=== PATIENT | female | born 1940 | race Caucasian/White ===

== ENCOUNTER 2019-01-04 09:10 | Day surgery (SDC) | payer MEDICARE ==
--- NOTE | 2018-12-10 07:27 | HP ---
PREOPERATIVE HISTORY AND PHYSICAL: DATE OF ADMISSION: 01/04/19 PROVIDER: Ramya Corral MD.* (DICTATED BY GABRIELLE MALLORY) CHIEF COMPLAINT: Right index finger pain. HISTORY OF PRESENT ILLNESS: Ella is a 78-year-old female who has been followed by Dr. Corral for right distal index finger pain. She has been diagnosed with a mucous cyst and significant deformity from her arthritis. She is interested in surgical intervention at this time. PAST MEDICAL HISTORY: Allergic rhinitis, obstructive sleep apnea, irritable bowel syndrome, and hyperlipidemia. PAST SURGICAL HISTORY: Left wrist cyst excision, left carpal tunnel release, tonsillectomy as a child. She reports no complications with anesthesia with those procedures. CURRENT MEDICATIONS: 1. Fluticasone propionate 50 mcg intranasal once daily. 2. Trazodone 50 mg one-half to 1 tab by mouth as needed for sleep. 3. Oxybutynin chloride 5 mg 2 times daily as needed. 4. Escitalopram oxalate 10 mg 1-1/2 tabs by mouth daily. 5. Ipratropium bromide 0.03% spray 2 sprays in each nostril 2 to 3 times a day as needed. 6. Atorvastatin calcium 10 mg one-half tab p.o. daily. 7. Levothyroxine 50 mcg half tab p.o. daily. 8. Methylphenidate 5 mg 4 to 5 tablets by mouth daily. 9. Tylenol 325 mg 2 tabs p.o. q.6 hours as needed for pain. 10. Vitamin D3 supplement 1000 units 2 tabs by mouth daily. 11. Susie Allergy [id number] as needed. ALLERGIES: No known drug allergies. FAMILY HISTORY: Noncontributory. SOCIAL HISTORY: The patient is a retired therapist. She drinks 1 to 2 alcoholic beverages daily. She quit smoking several years ago and exercises occasionally. REVIEW OF SYSTEMS: Negative for recent hospitalization, fevers, chills, night sweats, or weight loss. Positive for fatigue. HEENT: Negative for headaches, lightheadedness, or balance problems, blurred vision, double vision, sore throat , runny nose, frequent nosebleeds, or hearing changes. Cardiovascular: Negative for chest or arm pain with exertion, history of heart attack, heart murmur, heart palpitations, high blood pressure, embolism, or deep vein thrombosis. Respiratory: Negative for chronic cough, shortness of breath with exertion, asthma, or COPD. Gastrointestinal: Negative for heartburn, nausea, vomiting, diarrhea, constipation, or GERD. Genitourinary: Negative for nighttime urination, frequency of urination, urinary tract infections, or kidney problems. Musculoskeletal: Negative for chronic back or neck pain. Positive for previous fracture and arthritis. Neurologic: Negative for seizure , stroke, epilepsy. Positive for depression and anxiety. Endocrine: Negative for diabetes. Positive for hypothyroidism. Hematology: Positive for easy bleeding and bruising. Negative for history of anemia. PHYSICAL EXAMINATION GENERAL: She is a well-developed, well-nourished pleasant female, in no acute distress at rest. She is alert and oriented x3 with appropriate mood and affect. VITAL SIGNS: The patient is 4 feet 9 inches, weight 121 pounds. Blood pressure 100/60, pulse is 70, respirations 12. HEENT: Normocephalic, atraumatic. Her hearing and vision are grossly intact. NECK: Her trachea is midline. RESPIRATORY: Lungs are clear to auscultation bilaterally. No wheezes, rales, or rhonchi. CARDIOVASCULAR: Regular rate and rhythm. No murmurs, rubs, or gallops appreciated. ABDOMEN: Soft, nondistended, and nontender. Normal bowel sounds. EXTREMITIES: Exam of the right upper extremity: The patient's skin is intact without abrasions or open wounds. There is no significant edema or ecchymosis. She has significant deformities from arthritis, especially noted at the index finger DIP joint. The finger nail also has a deformity. She has good motion with flexion and extension of the finger with mild pain. She is tender over the area of the mucous cyst. Sensation to light touch is intact. She has a normal vascular exam. DIAGNOSTIC STUDIES/LAB DATA: X-rays of the hand show severe degenerative arthritis. IMPRESSION: Right index finger mucous cyst. PLAN: The patient is to undergo mucous cyst excision of the right index finger by Dr. Corral. The risks, benefits, and postoperative course were discussed with Dr. Corral at today's visit and she agreed to proceed. She will follow up in the office in 10 to 14 days postoperatively. All of her questions were answered to her full satisfaction. [place], [place] [id number]/[facility] #: [id number] ASIF
[~2019-01-04 09:10] MED LIST: Buffered Lidocaine 1% SYRIN* 1 ML/SYRINGE INTRADERM ONE; Dexamethasone IV* 4 MG/ML 1 ML (4 MG) IV SLOW PU ONE; Dexamethasone IV* 4 MG/ML 1 ML (4 MG) ONE; Famotidine IV* 10 MG/ML 2 ML (20 mg) IV ONE; Famotidine IV* 10 MG/ML 2 ML (20 mg) ONE; Lactated Ringers 1000 ML Bag* 1,000 ML IV SCH; Lidocaine 1% INJ* 10 MG/ML 30 ML SDV ONE
[2019-01-04] MEDS ORDERED: Lidocaine 2% PF * 5 ML VIAL ONE (09:42)
[2019-01-04] MEDS ORDERED: Midazolam* 1 MG/ML 2 ML VIAL (2 MG) ONE (09:42)
[2019-01-04] MEDS ORDERED: Propofol* 10 MG/ML 20 ML BTL ONE (09:42)
[2019-01-04] MEDS ORDERED: fentaNYL* 50 MCG/ML 2 ML VIAL (100 MCG VIAL) ONE (09:42)
[2019-01-04] MEDS ORDERED: Ibuprofen TAB* 600 MG PO PRN (10:24)
[2019-01-04] MEDS ORDERED: HYDROcodone/ACETAMIN 5-325 MG* 1 TAB PO PRN (10:24)
[2019-01-04] MEDS ORDERED: Naloxone* 0.4 MG/ML 1 ML VIAL IV PRN (10:24)
[2019-01-04] MEDS ORDERED: oxyCODONE/Acetamin 5/325 MG* TAB PO PRN (10:24)
[2019-01-04] MEDS ORDERED: Acetaminophen TAB* 325 MG PO PRN (10:24)
[2019-01-04] MEDS ORDERED: fentaNYL* 50 MCG/ML 2 ML VIAL (100 MCG VIAL) IV PRN (10:24)
[2019-01-04 12:35] VITALS: BP 101/60
--- NOTE | 2019-01-04 13:01 | OP ---
DATE OF OPERATION: 01/04/19 [facility] DATE OF : 40 SURGEON: Ramya Corral MD JUNIOR MECHANICAL ENGINEER: GABRIELLE Pederson ANESTHESIA: Local MAC. PRE-OP DIAGNOSIS: Right index finger mucous cyst. POST-OP DIAGNOSIS: Right index finger mucous cyst. OPERATIVE PROCEDURE: Removal of right index finger mucous cyst. ESTIMATED BLOOD LOSS: Zero. TOURNIQUET TIME: Approximately 15 minutes. INDICATION FOR PROCEDURE: Ella is a 78-year-old female who has a painful mass on the dorsal aspect of her right index finger DIP joint. She presents for removal. DESCRIPTION OF PROCEDURE: The patient was brought to the operating room, was given a sedation anesthetic and a local infiltration of 10 cc of 1% plain lidocaine as a digital block to the right index finger. The skin of her right upper extremity was prepped and draped in the usual sterile fashion. The index finger was exsanguinated with a Tourni-Cot, which was left in place for the duration of the procedure. An H-shaped incision was made on the dorsal aspect of the DIP joint and we dissected through the subcutaneous tissue. Skin flaps were elevated over the extensor tendon and over the mass and the ganglion cyst was removed and traced with its stalk down to the DIP joint. It was removed with a small portion of the DIP joint capsule as well as with the underlying osteophyte. The wound was irrigated and the skin edges were reapproximated with 4-0 nylon suture. The wound was dressed with Xeroform, 4x4, Webril, and Coban. The patient tolerated the procedure well and was brought to the recovery room in good condition. [id number]/[facility] #: [id number] [facility]
== END 2019-01-04 11:48 | disposition home or self-care (01) ==
LOC: OREAST 09:10
PROVIDERS: ATTEND Orthopaedic Surgery
DX: M67.441 Ganglion, right hand (principal); G47.33 Obstructive sleep apnea (adult) (pediatric); E78.5 Hyperlipidemia, unspecified; K58.9 Irritable bowel syndrome, unspecified; J30.9 Allergic rhinitis, unspecified; Z87.891 Personal history of nicotine dependence; E03.9 Hypothyroidism, unspecified; F41.8 Other specified anxiety disorders
CPT/HCPCS: 88304; J1100; J2250; J2704; J3010